=== PATIENT | female | born 1995 | race Hispanic/Latino ===

== ENCOUNTER 2017-10-02 08:59 | Emergency (ER) | payer BC, SELFPAY | END 2017-10-02 10:02 | disposition home or self-care (01) | LOC: ERS 08:59 | DX: O98.511 Other viral diseases complicating pregnancy, first trimester (principal); B34.9 Viral infection, unspecified; Z3A.01 Less than 8 weeks gestation of pregnancy | CPT/HCPCS: 99283 ==

== ENCOUNTER 2017-10-22 19:04 | Emergency (ER) | payer OTHER, SELFPAY ==
[2017-10-22 19:49] LABS: Bilirubin Negative (Negative); Blood, Urine Negative (Negative); Clarity CLOUDY (Clear); Glucose, Urine (Dipstick) Negative (Negative); Leukocyte Small (Negative); Nitrite Negative (Negative); Protein, Urine (Dipstick) Negative (Neg-Trace); Specific Gravity, Urine 1.017 (1.002-1.036); Urobilinogen 0.2 mg/dL (0.2-1.0); pH, Urine 7.5 (5.0-9.0)
[2017-10-22 19:52] LABS: Bacteria/HPF 2+ HPF (None Seen); Hyaline Casts/LPF 0-3 HYALINE CAST LPF (0-3 Hyaline); Pathc Cast-AUWi Flag 0.67 (0-2.49)
[2017-10-22 20:05] LABS: #Eosinphils 0.2 thou/uL (0.0-0.7); #Lymphocytes 2.2 thou/uL (1.20-3.40); #Monocytes 0.5 thou/uL (0.11-0.59); #Neutrophils 5.8 thou/uL (1.40-6.50); %Basophils 0.4 % (0.0-1.0); %Eosinophils 2.4 % (0.0-10.0); %Lymphocytes 25.2 % (21.0-51.0); %Monocytes 5.4 % (0.0-10.0); %Neutrophils 66.6 % (42.0-75.0); Hemoglobin 12.6 g/dL (12.0-16.0); Mean Corpuscular HGB CONC 34.2 g/dL (32.0-36.0); Mean Corpuscular Hemoglobin 29.7 pg (27.0-31.0); Platelet Count 383 thou/uL (130-400); RBC Distribution Width 12.7 % (11.5-14.5); Red Blood Cell (RBC) Count 4.25 mill/uL (4.20-5.40); White Blood Cell (WBC) Count 8.7 thou/uL (4.8-10.8)
[2017-10-22 20:29] LABS: ALT (SGPT) 41 U/L (8-55); AST (SGOT) 27 U/L (5-34); Albumin 4.2 g/dL (3.5-5.0); Alkaline Phosphatase 66 U/L (40-150); Anion Gap 15 mmol/L (10-20); BUN (Urea Nitrogen) 7 mg/dL (7.0-18.7); Bilirubin, Total 0.3 mg/dL (0.2-1.2); Calc. Creatinine Clearance 0 mL/min (70-130); Calcium 9.8 mg/dL (7.8-10.44); Carbon Dioxide 24 mmol/L (22-29); Chloride 102 mmol/L (98-107); Estimated GFR-MDRD Greater than 90; Globulin 3.7 g/dL (2.4-3.5); Glucose 97 mg/dL (70-105); Lipase 13 U/L (8-78); Potassium 3.7 mmol/L (3.5-5.1); Protein, Total 7.9 g/dL (6.0-8.3); Sodium 137 mmol/L (136-145)
[2017-10-22] MEDS ORDERED: Mag-Al 1200 mg/1200 mg/30 ML UDCUP ONE (23:54)
[2017-10-22] MEDS ORDERED: Lidocaine Viscous Sol 2% 15 ml UD Cup ONE (23:54)
--- NOTE | 2017-10-23 08:11 | ULT ---
PRELIMINARY REPORT/[facility]/EMERGENCY AFTER HOURS PROCEDURE: EXAM: US Uterus, Limited CLINICAL HISTORY: 22 years old, female; Pain; complicated by abdominal or pelvic pain; Upper; First trimester ; Gestational age or lmp: 9w2d; TECHNIQUE: Real-time ultrasound of the maternal uterus (limited) with image documentation. COMPARISON: No relevant prior studies available. FINDINGS: There is a live single intrauterine with an estimated heart rate of 180 beats per min mckinley. GESTATIONAL SAC - 3.8 cm - C/W 9 weeks 1 day CRL - 26.3 mm - C/W 9 weeks 3 days YOLK SAC - 5.4 mm There are no uterine abnormalities or significant free intraperitoneal fluid. The adenxa are unremark able. IMPRESSION: Single live intrauterine with an estimated gestational age of 9 weeks 2 days by ultrasound criteria. Expected due date May 26 2018 Thank you for allowing us to participate in the care of your patient. Dictated and Authenticated by: Rodolfo Witt MD 10/23/2017 12:55 AM Central Time ([place] & [place]) FINAL REPORT EMERGENCY AFTER HOURS PELVIC ULTRASOUND INCLUDING TRANSABDOMINAL AND TRANSVAGINAL AND VASCULAR DUPLEX WITH COLOR AND SPECTRAL DOPPLER IMAGING: Date: 10/23/17 Time: 0022 hours FINDINGS: Single, viable intrauterine fetus, 9 weeks/2 days, with EDC of 05/26/18. Unremarkable ovaries and adn exa. No evidence for ovarian torsion. Report in agreement with preliminary report given on-call by Freddy. POS: [facility]
--- NOTE | 2017-11-23 21:26 | EKG ---
Test Reason : Blood Pressure : / mmHG Vent. Rate : 084 BPM Atrial Rate : 084 BPM P-R Int : 148 ms QRS Dur : 080 ms QT Int : 356 ms P-R-T Axes : 042 024 023 degrees QTc Int : 420 ms Normal sinus rhythm Normal ECG Confirmed by ALIYA ORTIZ M.D. ([id number]), make up editor IVY FRASER ([id number]) on 11/23/2017 9:25:42 PM Referred By: Confirmed By:ALIYA ORTIZ M.D.
== END 2017-10-23 02:20 | disposition home or self-care (01) ==
LOC: ERS 19:04
DX: O23.41 Unspecified infection of urinary tract in pregnancy, first trimester (principal); R03.0 Elevated blood-pressure reading, without diagnosis of hypertension; Z3A.09 9 weeks gestation of pregnancy
CPT/HCPCS: 36415; 76856; 80053; 81003; 81015; 83690; 84702; 85025; 87804; 93005

== ENCOUNTER 2018-03-19 12:56 | Emergency (ER) | payer OTHER | END 2018-03-19 13:59 | disposition home or self-care (01) | LOC: ERS 12:56 | DX: K64.8 Other hemorrhoids (principal); I10 Essential (primary) hypertension; Z79.899 Other long term (current) drug therapy | CPT/HCPCS: 99283 ==